=== PATIENT | female | born 1985 | race Caucasian/White ===

== ENCOUNTER 2016-09-30 12:41 | Emergency (ER) | payer OTHER ==
[2016-09-30 14:08] VITALS: BP 133/87
--- NOTE | 2016-09-30 14:44 | UC ---
Psychiatric Complaint HPI - History Of Current Complaint Chief Complaint: [facility] Stated Complaint: DEPRESSION Time Seen by Provider: 09/30/16 14:36 Hx Obtained From: Patient Hx Last Menstrual Period: 2 months ago ?: No Onset/Duration: Gradual Onset, Lasting Weeks - 20 weeks., Still Present Timing: Constant Severity Initially: Mild Severity Currently: Severe Character: Depressed, Angry Aggravating Factor(s): Recent Stress - family issues., Medication Non- compliance - Stopped medication after the suicide of her boyfriend. Alleviating Factor(s): Medication - Before stopping the medication. Associated Signs And Symptoms: Social Withdrawal Related History: Positive For: Prior Psychiatric Issues - Diagnosed bipolar - Risk Factor(s) Completed Suicide Risk Factors: Negative - Allergies/Home Medications Allergies/Adverse Reactions: Allergies Allergy/AdvReac Type Severity Reaction Status Date / Time No Known Allergies Allergy Verified 09/30/16 14:08 PMH/Surg Hx/FS Hx/Imm Hx Psychological History Of: Reports: Bipolar Disorder - Surgical History Surgical History: Yes Surgery Procedure, Year, and Place: L4-L5, x 2, Tonsilectomy, uvula removed - Family History Known Family History: Positive: Cardiac Disease, Hypertension, Diabetes - Social History Occupation: Unemployed Lives: Alone - with boyfriend Alcohol Use: Rare Substance Use Type: Marijuana Substance Use Comment - Amount & Last Used: daily usage Smoking Status (MU): Heavy Every Day Tobacco Smoker Type: Cigarettes Amount Used/How Often: 1 ppd Have You Smoked in the Last Year: Yes Review of Systems Respiratory: Cough - smokers cough. Psychological: Anxious, Depressed All Other Systems Reviewed And Are Negative: Yes Physical Exam Triage Information Reviewed: Yes Appearance: Well-Appearing, Well-Nourished, Obese Vital Signs: Initial Vital Signs Temp 98.8 F 09/30/16 13:51 Pulse 93 09/30/16 13:51 Resp 16 09/30/16 13:51 BP 133/87 09/30/16 13:51 Pulse Ox 99 09/30/16 13:51 Vital Signs Reviewed: Yes Eyes: Positive: Conjunctiva Clear Neck exam: Normal Respiratory Exam: Normal Cardiovascular Exam: Normal Musculoskeletal Exam: Normal Neurological Exam: Normal Psychological Exam: Normal Skin Exam: Normal Psych Complaint Course/Dx - Differential Dx/Diagnosis Differential Diagnosis/HQI/PQRI: Anxiety, Bipolar Disorder, Depression Provider Diagnoses: Bipolar depressed. Currently with moderate depression. Discharge - Discharge Plan Condition: Stable Disposition: HOME Prescriptions: Divalproex ER TAB(*) [Depakote ER TAB(*)] 500 mg PO DAILY #30 tab.er Escitalopram (NF) [Lexapro (NF)] 5 mg PO DAILY #30 tab Risperidone 0.5 mg PO BEDTIME #30 tab Patient Education Materials: Bipolar Disorder (ED), Escitalopram (By mouth), Valproic Acid (By mouth), Risperidone (By mouth) Referrals: Carmelita Richmond [Primary Care Provider] - 2 Days (follow up medication changes.) Additional Instructions: please work on exercise as well. Thank you.
== END 2016-09-30 15:32 | disposition home or self-care (01) ==
LOC: UCCORT 12:41
DX: F31.9 Bipolar disorder, unspecified (principal); E66.9 Obesity, unspecified; F12.90 Cannabis use, unspecified, uncomplicated; F17.210 Nicotine dependence, cigarettes, uncomplicated
CPT/HCPCS: 99212; G0463